=== PATIENT | male | born 1965 | race Caucasian/White ===

== ENCOUNTER 2024-09-30 14:52 | Inpatient (IN) | payer OTHER ==
[2024-09-30 15:30] VITALS: BMI 22.3
[2024-09-30] MEDS ORDERED: NALOXONE (NARCAN) HCL 4 MG/0.1 ML SPRAY NS PRN (16:24)
[2024-09-30] MEDS ORDERED: ACETAMINOPHEN 325 MG TABLET (FP) PO PRN (16:24)
[2024-09-30] MEDS ORDERED: BENZONATATE 200 MG CAPSULE PO PRN (16:24)
[2024-09-30] MEDS ORDERED: DICYCLOMINE HCL 10 MG CAPSULE PO PRN (16:24)
[2024-09-30] MEDS ORDERED: MAGNESIUM HYDROX 2400MG/30ML ORAL SUSPENSION 30 ML CUP PO PRN (16:24)
[2024-09-30] MEDS ORDERED: POLYETHYLENE GLYCOL (HEALTHYLAX) 3350 17 GM PACKET PO PRN (16:24)
[2024-09-30] MEDS ORDERED: hydrOXYzine PAMOATE 25 MG CAPSULE (FP) PO PRN (16:24)
[2024-09-30] MEDS ORDERED: IBUPROFEN 600 MG TABLET (FP) PO PRN (16:24)
[2024-09-30] MEDS ORDERED: MAG HYDROX/AL HYDROX/SIMETH 30 ML UNIT-DOSE CUP PO PRN (16:24)
[2024-09-30] MEDS ORDERED: ONDANSETRON *ODT* 4 MG TABLET SL PRN (16:24)
[2024-09-30] MEDS ORDERED: LOPERAMIDE HCL 2 MG CAPSULE PO PRN (16:24)
[2024-09-30] MEDS ORDERED: BENZOCAINE/MENTHOL (CHLORASEPTIC ) LOZENGE MM PRN (16:24)
[2024-09-30] MEDS ORDERED: BISMUTH SUBSALICYLATE 524 MG/30 ML PO PRN (16:24)
[2024-09-30] MEDS ORDERED: IBUPROFEN 400 MG TABLET (FP) PO PRN (16:24)
[2024-09-30] MEDS ORDERED: guaiFENesin 600 MG TABLET.ER (FP) PO PRN (16:24)
[2024-09-30] MEDS ORDERED: HYDROCORTISONE 1% TOPICAL OINT 30 GM TUBE TP PRN (16:27)
[2024-09-30] MEDS ORDERED: PRENATAL VITAMINS W/ FOLIC ACID TABLET (FP) PO ONE (18:05)
[2024-09-30] MEDS: PRENATAL VITAMINS W/ FOLIC ACID TABLET (FP) PO SCH (18:07)
[2024-09-30] MEDS ORDERED: amLODIPine BESYLATE 5 MG TABLET (FP) ONE (18:09)
[2024-09-30] MEDS: amLODIPine BESYLATE 10 MG TABLET (FP) PO ONE (18:14)
[2024-09-30 18:51] VITALS: RESP 16
[2024-09-30] MEDS: METHOCARBAMOL 500 MG TABLET PO PRN (20:26)
[2024-09-30] MEDS: MELATONIN 5 MG TABLETS PO SCH (21:57)
[2024-09-30] MEDS: THIAMINE 100 MG TABLET PO SCH (21:57)
[2024-09-30] MEDS: cloNIDine HCL 0.1 MG TABLET PO ONE (21:57)
[2024-09-30] MEDS ORDERED: cloNIDine HCL 0.1 MG TABLET PO PRN (23:30)
[2024-10-01 06:22] VITALS: BP 156/81; PULSE 72; TEMP 98.4
[2024-10-01] MEDS ORDERED: PATIENT'S OWN MEDICATION (NON-FORMULARY) (Valsartan/Hydrochlorothiazide [Diovan Hct 160-12 PO SCH (10:00)
[2024-10-01] MEDS: HYDROCHLOROTHIAZIDE 12.5 MG CAPSULE (FP) PO SCH (10:06)
[2024-10-01] MEDS: NICOTINE 7 MG/24 HOURS TOPICAL PATCH TD SCH (10:06)
[2024-10-01] MEDS: DEXTROAMPHETAMINE/AMPHETAMINE 10 MG CAP.ER.24H PO SCH (10:06)
[2024-10-01] MEDS: VALSARTAN 160 MG TABLET PO SCH (10:06)
[2024-10-01] MEDS: predniSONE 10 MG TABLET (UD) PO SCH (10:06)
[2024-10-01 11:22] LABS: CHLORIDE 108 mmol/L (98-107); POTASSIUM 3.4 mmol/L (3.5-5.1); SODIUM 140 mmol/L (136-145)
[2024-10-01 11:25] LABS: HEMATOCRIT 34.1 % (35.4-49); HEMOGLOBIN 11.1 GM/dL (11.7-16.9); MCH 27.3 pg (25.7-33.7); MCHC 32.5 g/dl (32.0-35.9); MEAN CELL VOLUME 83.8 fl (80-96); MEAN PLT VOLUME 7.7 fl (7.5-11.1); PLATELET COUNT 266 10^3/uL (134-434); RBC 4.07 M/mm3 (4.00-5.60); WHITE BLOOD COUNT 5.2 K/mm3 (4.0-10.0)
[2024-10-01 11:35] LABS: ALBUMIN 3.3 g/dl (3.4-5.0); BLOOD UREA NITROGEN 15.2 mg/dL (7-18); CREATININE 1.5 mg/dL (0.55-1.3); GLUCOSE,RANDOM 158 mg/dL (74-106)
[2024-10-01 11:36] LABS: ANION GAP 4 mmol/L (4-13); CO2 28 mmol/L (21-32)
[2024-10-01 11:37] LABS: BILIRUBIN,TOTAL 0.7 mg/dL (0.2-1); SGPT/ALT 12 U/L (13-61); TOT PROT 6.2 g/dl (6.4-8.2)
[2024-10-01 11:38] LABS: ALK PHOS 106 U/L (45-117); CALCIUM 9.6 mg/dL (8.5-10.1); SGOT/AST 19 U/L (15-37)
== END 2024-10-01 10:23 | disposition home or self-care (01) | DRG 897 ==
LOC: YASAS 14:52 → SUATTDRO 14:52 → Y3N 17:58
PROVIDERS: ADMIT Allergy & Immunology; ATTEND Allergy & Immunology
PROC: HZ2ZZZZ Detoxification Services for Substance Abuse Treatment (ICD-10-PCS; principal; 2024-09-30)
DX: F10.20 Alcohol dependence, uncomplicated (principal); F13.20 Sedative, hypnotic or anxiolytic dependence, uncomplicated; Z94.0 Kidney transplant status; Z59.02 Unsheltered homelessness; F17.210 Nicotine dependence, cigarettes, uncomplicated; F25.9 Schizoaffective disorder, unspecified; F41.9 Anxiety disorder, unspecified; N18.9 Chronic kidney disease, unspecified; Z96.642 Presence of left artificial hip joint
CPT/HCPCS: 36415; 80053; 80305; 80307; 85027; 86780; 93005; 93010